=== PATIENT | male | born 1950 | race Caucasian/White ===

== ENCOUNTER 2016-10-16 17:34 | Emergency (ER) | payer OTHER | END 2016-10-16 19:10 | disposition other institution (70) | LOC: ER 17:34 | DX: J44.0 Chronic obstructive pulmonary disease with (acute) lower respiratory infection (principal); J18.9 Pneumonia, unspecified organism; R00.0 Tachycardia, unspecified; F17.210 Nicotine dependence, cigarettes, uncomplicated; Z88.8 Allergy status to other drugs, medicaments and biological substances; Z79.899 Other long term (current) drug therapy | CPT/HCPCS: 99284; 99284-25 ==

== ENCOUNTER 2016-10-16 17:34 | Inpatient (IN) | payer OTHER ==
[~2016-10-16] VITALS: Ht 177.8 cm; Wt 84.0 kg
[2016-10-16 18:14] LABS: BASO % 0.3 % (0.2-1.2); EOS % 0.2 % (0.8-7.0); GRAN % 82.6 % (34.0-67.9); HEMOGLOBIN 14.3 g/dL (13.7-17.5); LYMPH # 0.7 10_X3_uL (1.3-3.6); LYMPH % 7.2 % (21.8-53.1); MEAN CORPUSCULAR HEMOGLOBIN 27.8 pg (27.0-33.0); MEAN CORPUSCULAR HGB CONC 33.3 g/dL (32.0-36.0); MEAN CORPUSCULAR VOLUME 83.5 fL (79-92); MEAN PLATELET VOLUME 11.8 fl (7.5-11.5); MONO # 0.9 10_X3_uL (0.3-0.8); MONO % 9.7 % (5.3-12.2); PLATELET COUNT 181 x10_3/uL (163-337); RED BLOOD COUNT 5.15 x10_6/uL (4.6-6.1); RED CELL DISTRIBUTION WIDTH 16.1 % (11.6-14.4); WHITE BLOOD COUNT 9.7 x10_3/uL (4.2-9.1)
[2016-10-16 18:28] LABS: ALBUMIN 4.5 gm/dL (3.4-5.0); ALKALINE PHOSPHATASE 71 U/L (50-136); ALT/SGPT 11 U/L (7.53-40.17); AST/SGOT 23 U/L (6.66-35.34); BILIRUBIN,TOTAL 0.29 mg/dL (0.0-1.0); BLOOD UREA NITROGEN 14 mg/dL (7-18); CARBON DIOXIDE 24 mmol/L (21-32); GLUCOSE,RANDOM 130 mg/dL (70-99); POTASSIUM 3.8 mmol/L (3.5-5.1); SODIUM 138 mmol/L (136-145); TOTAL PROTEIN 7.5 gm/dL (6.4-8.2)
[2016-10-18 07:10] LABS: HEMATOCRIT 42.4 % (40-51); HEMOGLOBIN 14.3 g/dL (13.7-17.5); MEAN CORPUSCULAR HEMOGLOBIN 28.5 pg (27.0-33.0); MEAN CORPUSCULAR HGB CONC 33.7 g/dL (32.0-36.0); MEAN CORPUSCULAR VOLUME 84.6 fL (79-92); MEAN PLATELET VOLUME 11.8 fl (7.5-11.5); RED BLOOD COUNT 5.01 x10_6/uL (4.6-6.1); RED CELL DISTRIBUTION WIDTH 15.5 % (11.6-14.4); WHITE BLOOD COUNT 5.9 x10_3/uL (4.2-9.1)
[2016-10-18 07:29] LABS: BLOOD UREA NITROGEN 16 mg/dL (7-18); CALCIUM 9.1 mg/dL (8.7-10.7); CARBON DIOXIDE 27 mmol/L (21-32); CREATININE 0.7 mg/dL (0.6-1.3); GLUCOSE,RANDOM 98 mg/dL (70-99); POTASSIUM 4.3 mmol/L (3.5-5.1); SODIUM 139 mmol/L (136-145)
[2016-10-19 07:03] LABS: BASO % 0.5 % (0.2-1.2); EOS # 0.1 10_X3_uL (0.0-0.5); EOS % 1.2 % (0.8-7.0); GRAN # 2.9 10_X3_uL (1.8-5.4); GRAN % 48.8 % (34.0-67.9); HEMATOCRIT 40.6 % (40-51); HEMOGLOBIN 13.4 g/dL (13.7-17.5); LYMPH # 2.1 10_X3_uL (1.3-3.6); LYMPH % 35.8 % (21.8-53.1); MEAN CORPUSCULAR VOLUME 84.8 fL (79-92); MEAN PLATELET VOLUME 11.7 fl (7.5-11.5); MONO # 0.8 10_X3_uL (0.3-0.8); MONO % 13.7 % (5.3-12.2); PLATELET COUNT 158 x10_3/uL (163-337); RED BLOOD COUNT 4.79 x10_6/uL (4.6-6.1); RED CELL DISTRIBUTION WIDTH 15.3 % (11.6-14.4); WHITE BLOOD COUNT 5.9 x10_3/uL (4.2-9.1)
[2016-10-19 07:15] LABS: BLOOD UREA NITROGEN 19 mg/dL (7-18); CALCIUM 8.9 mg/dL (8.7-10.7); CARBON DIOXIDE 28 mmol/L (21-32); CREATININE 0.8 mg/dL (0.6-1.3); GLUCOSE,RANDOM 86 mg/dL (70-99); POTASSIUM 4.3 mmol/L (3.5-5.1); SODIUM 141 mmol/L (136-145)
== END 2016-10-19 16:40 | disposition home or self-care (01) | DRG 192 ==
LOC: ER 17:34 → EDBD 19:10 → MS 19:10
PROVIDERS: General Practice; ADMIT Family Medicine
DX: J44.1 Chronic obstructive pulmonary disease with (acute) exacerbation (principal); M54.6 Pain in thoracic spine; G89.29 Other chronic pain; I10 Essential (primary) hypertension; I25.10 Atherosclerotic heart disease of native coronary artery without angina pectoris; Z95.5 Presence of coronary angioplasty implant and graft; F17.210 Nicotine dependence, cigarettes, uncomplicated; R05 Cough; F41.9 Anxiety disorder, unspecified; G47.00 Insomnia, unspecified; R50.9 Fever, unspecified; Z83.3 Family history of diabetes mellitus; Z80.9 Family history of malignant neoplasm, unspecified; Z82.49 Family history of ischemic heart disease and other diseases of the circulatory system; Z88.8 Allergy status to other drugs, medicaments and biological substances; Z79.899 Other long term (current) drug therapy
CPT/HCPCS: 36415; 71010; 80048; 80053; 83605; 83880; 85025; 85379; 86738; 87040; 87070; 87205; 87449; 93005; 94640; 94664; 96365; 96367; 96375; 99070; 99284; 99284-25; J7040; J7050; Q9967